=== PATIENT | male | born 1960 | race Caucasian/White ===

== ENCOUNTER 2021-04-22 01:40 | Emergency (ER) | payer OTHER ==
--- OUTSIDE RECORDS SUMMARY | 2021-04-22 01:43 | XMS REPORT | Continuity of Care Document ---
:1960 Author Organization [facility] t Address [address] [place] [address] Care Team Providers Name Role Phone Hansfarb_Radha Attending Clinician Unavailable Mainor GERMAIN, T Attending Clinician Unavailable Only, Test Attending Clinician Unavailable Bethel BELLO, Nancy Attending Clinician Nancy HUGO Attending Clinician Unavailable Doctor Unassigned, Name Attending Clinician Unavailable Jonny_Radha Admitting Clinician Unavailable Payers Payer Name Policy Type Policy Number Effective Date Expiration Date S augustine [employer] (POS) [id number] 2000 00:00:00 Problems This patient has no known problems. Allergies, Adverse Reactions, Alerts Allergy Allergy Status Severity Reaction(s) Onset Inactive Treating Comm ents Source Name Type Date Date Clinician NO KNOWN Drug Active Univers ALLERGIE Class ity of [facility] Social History Social Habit Start Date Stop Date Quantity Comments [facility] Smoking Status Start Date Stop Date Source Unknown if ever smoked [facility] Medications This patient has no known medications. Procedures Procedure Date / Time Performed Performing Clinician [facility] e ASSIGNMENT OF BENEFITS 2019-12-20 20:08:42 Doctor Unassigned, No [facility] Encounters Start End Encounter Admission Attending Care Care Encounter Source Date/Time Date/Time Type Type Clinicians Facility Department ID 2021-03-28 2021-03-28 Outpatient Goldfarb_D [facility] [id number] Mobile 04:55:00 04:55:00 [facility] 2021-03-12 2021-03-12 Outpatient Goldfarb_D [facility] [id number] Mobile 09:23:00 09:23:00 [facility] 2021-03-11 2021-03-11 Outpatient [facility] [id number] Mobile 03:44:00 03:44:00 [facility] 2019-12-22 2019-12-22 Letter JESSICA Hayward [id number] Univers 00:00:00 00:00:00 (Out) Sara Jose Alejandro THOMAS [id number] it y of [facility] [id number] [place] [id number] [facility] 0[address] Branch 2019-12-20 2019-12-20 Laboratory Only, Adc Test [facility] [id number] Univers 15:10:27 15:15:03 Only Surya Hugo [id number] ity [facility] [id number] [facility] [id number] [facility] [address] 2019-12-20 2019-12-20 Outpatient R BETHEL [facility] [id number] Univers 15:00:00 15:00:00 SURYA iraheta of [facility] 2019-12-20 2019-12-20 Orders Doctor LOPEZ [id number] Univers 00:00:00 00:00:00 Only Unassigned, WILLIAM [id number] ity of [place] [facility] [id number] [place] [id number] [facility] [address] Results This patient has no known results.
[2021-04-22] MEDS ORDERED: HYDROCODONE/APAP 10/325 TAB ONE (02:26)
[2021-04-22] MEDS ORDERED: methocarbamoL 500 MG TAB ONE (02:26)
--- NOTE | 2021-04-22 04:14 | ER ---
Nurse's Notes [facility] Name: Scott Cabral Age: 60 yrs Sex: Male : 1960 Arrival Date: 04/22/2021 Time: 01:45 Bed 4 Private MD: Diagnosis: Left neck pain Presentation: 04/22 01:49 Chief complaint: Patient states: hit the front of his head on a boat last Thursday, has tw5 been having neck pain ever since. hx of spinal neck fusion. Coronavirus screen: Vaccine status: Patient reports receiving the 2nd dose of the covid vaccine. Ebola Screen: No symptoms or risks identified at this time. Initial Sepsis Screen: Does the patient meet any 2 criteria? No. Patient's initial sepsis screen is negative. Does the patient have a suspected source of infection? No. Patient's initial sepsis screen is negative. Risk Assessment: Do you want to hurt yourself or someone else? Patient reports no desire to harm self or others. Onset of symptoms was April 15, 2021. 01:49 Method Of Arrival: Ambulatory tw5 01:49 Acuity: EZRA 4 tw5 02:16 Care prior to arrival: None. Mechanism of Injury: No Mechanism of Injury. Trauma event as6 details: Injury occurred in the [facility]. Triage Assessment: 01:53 General: Appears in no apparent distress. Behavior is cooperative. Pain: Complains of tw5 pain in neck. Musculoskeletal: Reports pain in neck. Trauma Activation: Not Applicable Physician: ED Physician; Name: ; Notified At: ; Arrived At: Physician: General Surgeon; Name: ; Notified At: ; Arrived At: Physician: Radiology; Name: ; Notified At: ; Arrived At: Physician: Respiratory; Name: ; Notified At: ; Arrived At: Physician: Lab; Name: ; Notified At: ; Arrived At: Historical: - Allergies: 01:52 Sulfa (Sulfonamide Antibiotics); tw5 01:52 PENICILLINS; tw5 - PSHx: 01:52 Pelvic Surgery; Spinal Fusion; tw5 - Immunization history:: Client reports receiving the 2nd dose of the Covid vaccine. - Social history:: Smoking status: Patient denies any tobacco usage or history of. - Immunization history: Last tetanus immunization: unknown. Screenin:53 Abuse screen: Denies threats or abuse. Denies injuries from another. Nutritional tw5 screening: No deficits noted. Tuberculosis screening: No symptoms or risk factors identified. Fall Risk None identified. Primary Survey: 02:14 NO uncontrolled hemorrhage observed. Breathing/Chest: Respiratory pattern: regular. as6 Circulation: Pulses: palpable . Disability Alert. Exposure/Environment: A warming method has been applied: A warm blanket has been provided to the patient. Reassessment Breathing/Chest Respiratory pattern Circulation Pulses Palpable Disability Alert. Assessment: 02:13 General: Appears in no apparent distress. uncomfortable, Behavior is calm, cooperative. as6 Pain: Complains of pain in neck. Neuro: Denies numbness. Neuro: Level of Consciousness is awake, alert, obeys commands, Oriented to person, place, time, situation. Cardiovascular: Capillary refill < 3 seconds Patient's skin is warm and dry. Respiratory: Airway is patent Trachea midline Respiratory effort is even, unlabored, Respiratory pattern is regular, symmetrical. Derm: Skin is intact. Vital Signs: 01:49 BP 141 / 88; Pulse 63; Resp 18; Temp 97.7(O); Pulse Ox 100% on R/A; Weight 87.54 kg; tw5 Height 5 ft. 10 in. (177.80 cm); Pain 7/10; 02:28 BP 138 / 106; Pulse 65; Resp 18 S; Pulse Ox 96% on R/A; as6 03:33 BP 116 / 83; Pulse 62; Resp 18 S; Pulse Ox 96% on R/A; as6 04:33 BP 124 / 97; Pulse 65; Resp 18 S; Pulse Ox 94% on R/A; as6 01:49 Body Mass Index 27.69 (87.54 kg, 177.80 cm) tw5 Telly Coma Score: 02:15 Eye Response: spontaneous(4). Verbal Response: oriented(5). Motor Response: obeys as6 commands(6). Total: 15. Trauma Score (Adult): 02:15 Eye Response: spontaneous(1); Verbal Response: oriented(1); Motor Response: obeys as6 commands(2); Systolic BP: > 89 mm Hg(4); Respiratory Rate: 10 to 29 per min(4); Telly Score: 15; Trauma Score: 12 ED Course: 01:45 Patient arrived in ED. ja 01:45 Dc Callejas MD is Attending Physician. kdr 01:52 Triage completed. tw5 01:53 Arm band placed on right wrist. tw5 01:54 Roney Quezada, RN is Primary Nurse. as6 02:15 Patient maintains SpO2 saturation greater than 95% on room air. as6 02:17 Bed in low position. Call light in reach. Pulse ox on. NIBP on. Door closed. Warm as6 blanket given. 02:17 Thermoregulation: warm blanket given to patient. as6 03:07 CT C Spine In Process Unspecified. EDMS 04:32 No provider procedures requiring assistance completed. Patient did not have IV access as6 during this emergency room visit. Administered Medications: 02:27 Drug: [place] (HYDROcodone-acetaminophen) 10 mg-325 mg 1 tabs Route: PO; as6 04:31 Follow up: Response: No adverse reaction; RASS: Alert and Calm (0) as6 02:27 Drug: Robaxin (methocarbamol) 750 mg Route: PO; as6 04:31 Follow up: Response: No adverse reaction as6 Intake: 02:15 PO: 0ml; Total: 0ml. as6 Output: 02:15 Urine: 0ml; Total: 0ml. as6 Outcome: 04:13 Discharge ordered by . kdr 04:32 Discharged to home ambulatory. as6 04:32 Condition: stable 04:32 Patient's length of stay in the Emergency Department was greater than 2 hours. pending CTPatient's length of stay extended due to 04:32 Discharge instructions given to patient, Instructed on discharge instructions, follow as6 up and referral plans. medication usage, Demonstrated understanding of instructions, follow-up care, medications, Prescriptions given X 3. 04:34 Patient left the ED. as6 Signatures: Dispatcher [employer] EDSD Dc Callejas MD MD kdr Destinee Saunders Tiffany tw5 Roney Quezada, RN RN as6
--- NOTE | 2021-04-22 04:14 | EDPHYS ---
Physician Documentation [facility] Name: Scott Cabral Age: 60 yrs Sex: Male : 1960 Arrival Date: 04/22/2021 Time: 01:45 Bed 4 Private MD: ED Physician Dc Callejas HPI: 04/22 02:48 This 60 yrs old Male presents to ER via Ambulatory with complaints of Neck Injury. kdr 02:48 The patient or guardian complains of decreased range of motion, an injury, pain, that kdr is acute. The symptoms are located on the face, left posterior aspect of neck and left lateral aspect of neck. Onset: The symptoms/episode began/occurred gradually, Since April 15. Context: The problem was sustained at a restaurant, at a Patient states that he was walking down a stairway with a low overhead and hit his forehead on a beam. Since then he has had increasingly worsening pain on the left lateral aspect of his neck. He denies any peripheral radiculopathy symptoms. Associated signs and symptoms: Pertinent positives: Pain to the left lateral neck which has become increasingly stiff and difficult to manage. The pain does not radiate. Modifying factors: The symptoms are alleviated by nothing. the symptoms are aggravated by movement. Severity of symptoms: At their worst the symptoms were mild, moderate, just prior to arrival, in the emergency department the symptoms are unchanged. The patient has not experienced similar symptoms in the past. The patient has not recently seen a physician. Historical: - Allergies: 01:52 Sulfa (Sulfonamide Antibiotics); tw5 01:52 PENICILLINS; tw5 - PSHx: 01:52 Pelvic Surgery; Spinal Fusion; tw5 - Immunization history:: Client reports receiving the 2nd dose of the Covid vaccine. - Social history:: Smoking status: Patient denies any tobacco usage or history of. - Immunization history: Last tetanus immunization: unknown. ROS: 02:48 Constitutional: Negative for fever, chills, and weight loss, Eyes: Negative for injury, kdr pain, redness, and discharge, Cardiovascular: Negative for chest pain, palpitations, and edema, Respiratory: Negative for shortness of breath, cough, wheezing, and pleuritic chest pain. 02:48 Neck: Positive for injury or acute deformity, pain with movement, pain at rest, stiffness, tenderness, of the left posterior aspect of neck and left lateral aspect of neck. Exam: 02:48 Constitutional: This is a well developed, well nourished patient who is awake, alert, kdr and in no acute distress. Head/Face: Normocephalic, atraumatic. Chest/axilla: Normal chest wall appearance and motion. Nontender with no deformity. No lesions are appreciated. 02:48 Neck: External neck: is normal, C-spine: appears grossly normal, ROM/movement: pain, that is mild, with rotation to the left, limited range of motion, that is mild, when rotating to the left, Meningeal signs: are not present, nuchal rigidity, is not appreciated. Vital Signs: 01:49 BP 141 / 88; Pulse 63; Resp 18; Temp 97.7(O); Pulse Ox 100% on R/A; Weight 87.54 kg; tw5 Height 5 ft. 10 in. (177.80 cm); Pain 7/10; 02:28 BP 138 / 106; Pulse 65; Resp 18 S; Pulse Ox 96% on R/A; as6 03:33 BP 116 / 83; Pulse 62; Resp 18 S; Pulse Ox 96% on R/A; as6 04:33 BP 124 / 97; Pulse 65; Resp 18 S; Pulse Ox 94% on R/A; as6 01:49 Body Mass Index 27.69 (87.54 kg, 177.80 cm) tw5 Dobson Coma Score: 02:15 Eye Response: spontaneous(4). Verbal Response: oriented(5). Motor Response: obeys as6 commands(6). Total: 15. Trauma Score (Adult): 02:15 Eye Response: spontaneous(1); Verbal Response: oriented(1); Motor Response: obeys as6 commands(2); Systolic BP: > 89 mm Hg(4); Respiratory Rate: 10 to 29 per min(4); Telly Score: 15; Trauma Score: 12 MDM: 04:13 Patient medically screened. kdr 04:34 Data reviewed: vital signs, nurses notes, lab test result(s), radiologic studies. kdr Counseling: I had a detailed discussion with the patient and/or guardian regarding: the historical points, exam findings, and any diagnostic results supporting the discharge/admit diagnosis, radiology results, the need for outpatient follow up. ED course: Patient had moderate relief from his discomfort on arrival. He was happy with the care provided the plan for discharge and follow-up. He had no evidence of any acute significant life or limb threat during his stay in the ED or at the time of release. 04/22 02:10 Order name: CT C Spine kdr Administered Medications: 02: Drug: [place] (HYDROcodone-acetaminophen) 10 mg-325 mg 1 tabs Route: PO; as6 04:31 Follow up: Response: No adverse reaction; RASS: Alert and Calm (0) as6 02:27 Drug: Robaxin (methocarbamol) 750 mg Route: PO; as6 04:31 Follow up: Response: No adverse reaction as6 Disposition Summary: 04/22/21 04:13 Discharge Ordered Location: Home kdr Problem: new kdr Symptoms: have improved kdr Condition: Stable kdr Diagnosis - Left neck pain kdr Followup: kdr - With: Private Physician - When: 2 - 3 days - Reason: If symptoms return, Further diagnostic work-up, Recheck today's complaints, Continuance of care, Re-evaluation by your physician Discharge Instructions: - Discharge Summary Sheet kdr - Musculoskeletal Pain kdr - Neck Exercises kdr Forms: - Medication Reconciliation Form kdr - Thank You Letter kdr - Prescription Opioid Use kdr Prescriptions: - methocarbamol 750 mg Oral tablet - take 2 tablet by ORAL route 2 times per day As needed; 20 tablet; Refills: 0, kdr Product Selection Permitted - Ibuprofen 800 mg Oral Tablet - take 1 tablet by ORAL route every 8 hours As needed take with food; 30 tablet; kdr Refills: 0, Product Selection Permitted - Tramadol 50 mg Oral Tablet - take 1 tablet by ORAL route every 8 hours as needed; 12 tablet; Refills: 0, kdr Product Selection Permitted Signatures: Dispatcher [employer] Dc Higgins MD MD kdr Key Juarez tw5 Roney Quezada RN RN as6
[2021-04-22 04:41] VITALS: TEMP 97.7
[2021-04-22 04:45] VITALS: BP 124/97; O2SAT 94
--- NOTE | 2021-04-22 14:49 | RAD REPORT ---
EXAM DESCRIPTION: CT - C Spine Wo Con - 04/22/2021 4:44 am CLINICAL HISTORY: 60 years, Male, PAIN COMPARISON: None TECHNIQUE: Multiple axial CT images through the cervical spine were obtained at 2 mm slice thickness at 2 mm interval reconstruction. In addition 2-D multiplanar reformats and the sagittal coronal plan e were performed and reviewed. This exam was performed according to our departmental dose-optimization protocol, which includes auto mated exposure control, adjustment of the mA and/or kV according to patient size and/or use of iterat clayton reconstruction technique. FINDINGS: The alignment of the vertebral bodies are normal. There is status post anterior plate fixa tion device C7/T1. There is no evidence of fracture or subluxation. There is degenerative disc diseas e with decreased intervertebral disc height, anterior spondylosis and posterior osteophyte complex at C2/C3, C3/C4 and C5/C6. There is no significant spinal canal stenosis. Minimal neural foraminal narr owing at C5/C6. There are uncovertebral degenerative changes at many to side C2-C6. There is no preve rtebral soft tissue swelling. Sagittal coronal reformatted images demonstrate no subluxation or bon y abnormalities. IMPRESSION: No acute fracture or subluxation. Status post anterior plate fixation device C7/T1. Degenerative disc disease at C2/C3, C3/C4 and C5/C6. Minimal neural foraminal narrowing at C5/C6. Electronically signed by: Keenan Jalloh MD 04/22/2021 3:58 AM RESIDENT MANAGER Due to temporary technical issues with the PACS/Fluency reporting system, reports are being signed by the in house radiologists without review as a courtesy to insure prompt reporting. The interpreting radiologist is fully responsible for the content of the report.
== END 2021-04-22 04:34 | disposition home or self-care (01) ==
LOC: ER 01:40
DX: M54.2 Cervicalgia (principal); Z88.0 Allergy status to penicillin; Z88.2 Allergy status to sulfonamides
CPT/HCPCS: 72125; 99284

== ENCOUNTER 2024-02-19 08:31 | Emergency (ER) | payer OTHER ==
--- NOTE | 2024-02-19 09:17 | ER ---
Nurse's Notes [facility] Name: Lora Cabral Age: 63 yrs Sex: Female : 1960 Arrival Date: 02/19/2024 Time: 08:31 Bed 15 Private MD: Diagnosis: Leakage from Estrada Catheter Bag Presentation: 02/18 08:50 Chief complaint: Patient states: "My urinary bag is leaking, I don't want it removed rs5 and reinserted I just want the bag to be changed". Coronavirus screen: At this time, the client does not indicate any symptoms associated with coronavirus-19. Ebola Screen: No symptoms or risks identified at this time. Initial Sepsis Screen: Does the patient meet any 2 criteria? No. Patient's initial sepsis screen is negative. Does the patient have a suspected source of infection? No. Patient's initial sepsis screen is negative. Risk Assessment: Do you want to hurt yourself or someone else? Patient reports no desire to harm self or others. Onset of symptoms was February 19, 2024. 08:50 Method Of Arrival: Ambulatory rs5 08:50 Acuity: EZRA 4 rs5 Triage Assessment: 08:50 General: Appears in no apparent distress. comfortable, Behavior is calm, cooperative. rs5 Historical: - Allergies: 08:55 PENICILLINS; rs5 08:55 Sulfa (Sulfonamide Antibiotics); rs5 - PMHx: 08:55 urinary problem (Spinal Fusion); rs5 - PSHx: 08:55 Pelvic Surgery; Spinal Fusion; rs5 - Immunization history:: Adult Immunizations up to date. - Infectious Disease History:: Denies. - Social history:: Smoking status: Patient denies any tobacco usage or history of. Screenin:00 [facility] ED Fall Risk Assessment (Adult) History of falling in the last 3 months, rs5 including since admission No falls in past 3 months (0 pts) Confusion or Disorientation No (0 pts) Intoxicated or Sedated No (0 pts) Impaired Gait No (0 pts) Mobility Assist Device Used No (0 pt) Altered Elimination No (0 pt) Score/Fall Risk Level 0 - 2 = Low Risk Oriented to surroundings, Maintained a safe environment. 09:00 Abuse screen: Denies threats or abuse. Nutritional screening: No deficits noted. rs5 Tuberculosis screening: No symptoms or risk factors identified. Assessment: 08:46 General: Appears in no apparent distress. comfortable, Behavior is calm, cooperative. rs5 Pain: Denies pain. Neuro: Level of Consciousness is awake, alert. Cardiovascular: Patient's skin is warm and dry. Respiratory: Airway is patent Respiratory effort is even, unlabored, Respiratory pattern is regular, symmetrical. GI: Abdomen is round non-distended. : Estrada in place to gravity drainage 100 cc clear yellow urine noted in urine bag. EENT: No signs and/or symptoms were reported regarding the EENT system. Derm: Skin is intact, Skin is pink, warm \\T\\ dry. Musculoskeletal: Range of motion: intact in all extremities. 09:20 Reassessment: to bedside, estrada bag changed and replaced with new bag, pt tolerated rs5 procedure well. 09:30 Reassessment: Patient and/or family updated on plan of care and expected duration. Pain rs5 level reassessed. Patient is alert, oriented x 3, equal unlabored respirations, skin warm/dry/pink. Vital Signs: 08:50 BP 137 / 81; Pulse 77; Resp 17; Temp 98(O); Pulse Ox 99% on R/A; rs5 09:25 BP 133 / 79; Pulse 70; Resp 17; Pulse Ox 99% on R/A; rs5 ED Course: 08:37 Patient arrived in ED. sj2 08:46 Brandon Jade, RN is Primary Nurse. rs5 08:47 Ludwig Tirado MD is Attending Physician. ec2 08:54 Triage completed. rs5 08:55 No provider procedures requiring assistance completed. rs5 09:00 Patient has correct armband on for positive identification. Placed in gown. Bed in low rs5 position. Call light in reach. Side rails up X2. 09:00 Arm band placed on right wrist. rs5 09:25 Provided Education on: discharge instructions . rs5 09:30 Patient did not have IV access during this emergency room visit. rs5 Administered Medications: No medications were administered Medication: 08:55 VIS not applicable for this client. rs5 Outcome: 09:17 Discharge ordered by . ec2 09:30 Discharged to home ambulatory, rs5 09:30 Condition: stable rs5 09:30 Discharge instructions given to patient, family, Instructed on discharge instructions, follow up and referral plans. Demonstrated understanding of instructions, follow-up care, 09:31 Patient left the ED. rs5 Signatures: Brandon Jade RN RN rs5 Ludwig Tirado MD MD ec2 Cami Woody 2
--- NOTE | 2024-02-19 09:17 | EDPHYS ---
Physician Documentation [facility] Name: Lora Cabral Age: 63 yrs Sex: Female : 1960 Arrival Date: 02/19/2024 Time: 08:31 Bed 15 Private MD: ED Physician Ludwig Tirado HPI: 02/18 08:54 This 63 yrs old Female presents to ER via Ambulatory with complaints of ec2 Problem With Urinary Catheter. 08:54 Patient with indwelling Estrada catheter, is here for leakage from the Estrada bag. No ec2 other concerns.. Historical: - Allergies: 08:55 PENICILLINS; rs5 08:55 Sulfa (Sulfonamide Antibiotics); rs5 - PMHx: 08:55 urinary problem (Spinal Fusion); rs5 - PSHx: 08:55 Pelvic Surgery; Spinal Fusion; rs5 - Immunization history:: Adult Immunizations up to date. - Infectious Disease History:: Denies. - Social history:: Smoking status: Patient denies any tobacco usage or history of. ROS: 08:54 Constitutional: as per hpi ec2 Exam: 08:54 Constitutional: GEN: NAD Head: atraumatic Eyes: EOMI Ears: External ears are ec2 normal. CV: regular rate LUNGS: no respiratory distress ABD: non-distended. : Estrada catheter in place with bag to have small leak. SKIN: no evidence of rashes MSK: no evidence of trauma Vital Signs: 08:50 BP 137 / 81; Pulse 77; Resp 17; Temp 98(O); Pulse Ox 99% on R/A; rs5 09:25 BP 133 / 79; Pulse 70; Resp 17; Pulse Ox 99% on R/A; rs5 MDM: 08:51 Medical Screening Exam initiated ec2 08:54 Data reviewed: vital signs, nurses notes. ED course: Patient arrives today for ruptured ec2 Estrada bag. Will place Estrada bag. Will discharge home. Return precautions given.. 02/18 08:56 Order name: Vick. Order: estrada catheter bag change ; Complete Time: 09:12 ec2 Administered Medications: No medications were administered Disposition Summary: 02/19/24 09:17 Discharge Ordered Notes: Location: Home ec2 Condition: Stable ec2 Diagnosis - Leakage from Estrada Catheter Bag ec2 Followup: ec2 - With: Private Physician - When: - Reason: Re-evaluation by your physician Discharge Instructions: - Discharge Summary Sheet ec2 - Indwelling Urinary Catheter Insertion, Care After ec2 Forms: - Medication Reconciliation Form ec2 - Antibiotic Education ec2 - Prescription Opioid Use ec2 - Patient Portal Instructions ec2 - Leadership Thank You Letter ec2 Signatures: Brandon Jade RN RN rs5 Ludwig Tirado MD MD ec2
[2024-02-19 09:38] VITALS: BP 137/81; TEMP 98; O2SAT 99
== END 2024-02-19 09:31 | disposition home or self-care (01) ==
LOC: ER 08:31
DX: T83.038A Leakage of other urinary catheter, initial encounter (principal); Z88.0 Allergy status to penicillin; Z88.2 Allergy status to sulfonamides
CPT/HCPCS: 99282